=== PATIENT | male | born 1985 | race Two or more races ===

== ENCOUNTER 2019-12-26 19:23 | Emergency (ER) | payer SELFPAY ==
[~2019-12-26] VITALS: Ht 170.2 cm; Wt 140.6 kg
--- NOTE | 2019-12-26 20:05 | NUR ---
pt bibself c/o lower abd pain radiating to the testicles x1 days, -n/v to er bed 3 awaiting md lewis
[2019-12-26] MEDS ORDERED: HYDROMORPHONE 1 MG/1 ML DISP.SYRIN ONE ×2 (20:11→21:33)
[2019-12-26] MEDS ORDERED: ONDANSETRON HCL/PF 4 MG/2 ML VIAL ONE (20:11)
[2019-12-26 20:17] LABS: APPEARANCE,URINE CLEAR (CLEAR); BILIRUBIN,URINE NEGATIVE (NEGATIVE); BLOOD, URINE LARGE Ery/uL (NEGATIVE); COLOR,URINE YELLOW (YELLOW); KETONES,URINE NEGATIVE (NEGATIVE); LEUKOCYTE ESTERASE ,URINE NEGATIVE (NEGATIVE); NITRITE, URINE NEGATIVE (NEGATIVE); PROTEIN,URINE 30 mg/dl (NEGATIVE); UGLUCOSE NEGATIVE (NEGATIVE); UROBILINOGEN,URINE 0.2 EU/dL (0.2)
[2019-12-26 20:29] LABS: BACTERIA,URINE RARE /HPF (None Seen); MUCUS,URINE RARE /LPF (None Seen); WBC,URINE 0-2 /HPF (0-3)
[2019-12-26] MEDS ORDERED: ONDANSETRON HCL/PF 4 MG/2 ML VIAL IVP ONE (20:30)
[2019-12-26] MEDS ORDERED: IV NS 0.9% 1,000 ML BAG IV ONE (20:30)
[2019-12-26] MEDS ORDERED: HYDROMORPHONE INJ 2 MG/ML DISP.SYRIN IV ONE (20:30)
[2019-12-26 20:35] LABS: BASOPHILS # (AUTO) 0.1 /CMM (0.0-0.2); BASOPHILS % (AUTO) 0.5 % (0.0-2.0); EOSINOPHILS % (AUTO) 0.7 % (0.0-6.0); HEMATOCRIT 43 % (39-51); HEMOGLOBIN 14.7 g/dL (13.5-17.5); LYMPHOCYTES # (AUTO) 1.3 /CMM (0.8-4.8); LYMPHOCYTES % (AUTO) 7.7 % (20.0-44.0); MEAN CORPUSCULAR HGB CONC 34 g/dl (31.0-36.0); MEAN CORPUSCULAR VOLUME 86 fL (80-96); MONOCYTES # (AUTO) 0.9 /CMM (0.1-1.30); MONOCYTES % (AUTO) 5.8 % (2.0-12.0); NEUTROPHILS # (AUTO) 13.8 /CMM (1.8-8.9); NEUTROPHILS % (AUTO) 85.3 % (43.0-81.0); PLATELET COUNT (AUTO) 291 /CMM (150-450); RED BLOOD CELL COUNT(AUTO) 5.02 MIL/uL (4.5-6.0); WHITE BLOOD COUNT (AUTO) 16.2 K/uL (4.3-11.0)
--- NOTE | 2019-12-26 20:58 | NUR ---
TECH AT BEDSIDE FOR US
[2019-12-26 21:34] LABS: CREATININE 1.3 mg/dL (0.6-1.3); POTASSIUM 4.1 mmol/L (3.5-5.1)
[2019-12-26 21:35] LABS: ALBUMIN 3.6 g/dL (3.4-5.0); BILIRUBIN,DIRECT 0.1 mg/dL (0.0-0.2); BILIRUBIN,TOTAL 0.2 mg/dL (0.2-1.0); TOTAL PROTEIN, SERUM 8.1 g/dL (6.4-8.2)
[2019-12-26] MEDS ORDERED: HYDROMORPHONE 1 MG/1 ML DISP.SYRIN IV ONE (22:00)
[2019-12-26] MEDS ORDERED: IOHEXOL-300 100 ML VIAL IV ONE (22:27)
[2019-12-26] MEDS ORDERED: IV NS 0.9% 250 ML IV ONE (22:28)
[2019-12-26] MEDS ORDERED: KETOROLAC TROMETHAMINE INJ 30 MG/ML VIAL ONE (23:05)
[2019-12-26] MEDS: HYDROCODONE/APAP 5/325MG TABLET PO ONE ×2 (23:17→23:24)
[2019-12-26 23:18] VITALS: BP 147/97
--- NOTE | 2019-12-26 23:18 | NUR ---
Patient discharged to home in stable condition. Written and verbal after care instructions given. Patient verbalizes understanding of instruction. IV removed. Catheter intact and site benign. Pressure and 4x4 applied to site. No bleeding noted.
[2019-12-26] MEDS ORDERED: HYDROCODONE/APAP 5/325MG TABLET ONE ×2 (23:23)
[2019-12-26] MEDS ORDERED: KETOROLAC TROMETHAMINE INJ 30 MG/ML VIAL IV ONE (23:30)
== END 2019-12-26 23:24 | disposition home or self-care (01) ==
LOC: ER 19:27
DX: R73.9 Hyperglycemia, unspecified (principal); N13.2 Hydronephrosis with renal and ureteral calculous obstruction
CPT/HCPCS: 36415; 74177; 76870; 80048; 80076; 81001; 83690; 85025; 85730; 96361; 96374; 96375; 96376; 99285; J1170 ×2; J1885; J2405; J7030; J7050; Q9967; 81000-TC

== ENCOUNTER 2020-12-01 03:14 | Emergency (ER) | payer SELFPAY ==
[~2020-12-01] VITALS: Ht 170.2 cm; Wt 136.1 kg
--- NOTE | 2020-12-01 03:33 | NUR ---
BIB SELF C/O INSECT BITE TO BACK AND L ARM X TODAY. ONE LARGE BITE WITH FOUR SMALLER BITES TO BACK IN ADDITION TO LARGE BITE ON ARM. PT ENDORSES ITCHING AND CLEAR DRAINAGE DENIES PAIN. VSS TO BED 2.
[2020-12-01] MEDS ORDERED: CEPH500T PO (03:45)
[2020-12-01] MEDS ORDERED: SULF1TAB48 PO (03:45)
[2020-12-01] MEDS ORDERED: CEFTRIAXONE 1 G VIAL ONE (03:54)
[2020-12-01] MEDS ORDERED: SULFAMETH/TRIMETH 800/160 MG 1 UDTAB TABLET ONE (03:54)
[2020-12-01] MEDS ORDERED: LIDOCAINE /MPF 1% VIAL 5 ML VIAL ONE (03:55)
[2020-12-01] MEDS ORDERED: TDAP [DIPH/PERTUSSIS/TET] 0.5 ML VIAL IM ONE ×2 (03:55→04:00)
[2020-12-01] MEDS ORDERED: CEFTRIAXONE 1 G VIAL IM ONE (04:00)
[2020-12-01] MEDS ORDERED: SULFAMETH/TRIMETH 800/160 MG 1 UDTAB TABLET PO ONE (04:00)
[2020-12-01 04:09] VITALS: BP 150/74
--- NOTE | 2020-12-01 04:09 | NUR ---
Patient discharged to home in stable condition. Rx and Written and verbal after care instructions given. Patient verbalizes understanding of instruction.
== END 2020-12-01 04:10 | disposition home or self-care (01) ==
LOC: ER 03:14
DX: S30.860A Insect bite (nonvenomous) of lower back and pelvis, initial encounter (principal); S40.862A Insect bite (nonvenomous) of left upper arm, initial encounter; L03.312 Cellulitis of back [any part except buttock and flank]; Z88.6 Allergy status to analgesic agent; Z60.2 Problems related to living alone; Z79.899 Other long term (current) drug therapy; W57.XXXA Bitten or stung by nonvenomous insect and other nonvenomous arthropods, initial encounter; Y93.89 Activity, other specified; Y92.89 Other specified places as the place of occurrence of the external cause; Y99.8 Other external cause status
CPT/HCPCS: 90471; 90715; 96372; 99284; J0696; J3490